=== PATIENT | female | born 1955 | race Asian ===

== ENCOUNTER 2017-06-06 16:32 | Emergency (ER) | payer BC, OTHER ==
[~2017-06-06] VITALS: Ht 157.5 cm; Wt 61.0 kg
[2017-06-06 16:35] VITALS: Ht 157.5 cm; Wt 61.0 kg
[2017-06-06] MEDS ORDERED: ONDANSETRON 4 MG INJ IV STA (17:44)
[2017-06-06] MEDS ORDERED: KETOROLAC 15 MG INJ IV STA (17:44)
[2017-06-06] MEDS ORDERED: SOD CHLORIDE 0.9% 1,000 ML IV STA (17:44)
--- NOTE | 2017-06-06 17:49 | ERD ---
ER Documentation Chief Complaint Date/Time DATE: 06/06/17 TIME: 17:45 Chief Complaint 6/10 left side pelvic pain x 4 days HPI 62-year-old female presents complaining of left lower quadrant abdominal pain/ pelvic pain for the past 4 days. Pain is 6 out of 10 nonradiating. Denies any fever. Denies any nausea or vomiting. Admits to mild diarrhea without any blood. States she denies any dysuria but has had difficulty urinating and has been urinating frequently with small amounts. Denies any hematuria. ROS All systems reviewed and are negative except as per history of present illness. Medications Home Meds Active Scripts Metronidazole* (Flagyl*) 500 Mg Tablet, 500 MG PO Q8 for 7 Days, TAB Prov:JHONY MCCALLUM PA-C 06/06/17 Ciprofloxacin Hcl* (Ciprofloxacin Hcl*) 500 Mg Tablet, 500 MG PO BID for 5 Days , TAB Prov:JHONY MCCALLUM PA-C 06/06/17 Allergies Allergies: Coded Allergies: No Known Allergy (Unverified , 06/06/17) FmHx Family History: No diabetes Physical Exam Vitals Vital Signs Date Time Temp Pulse Resp B/P Pulse Ox O2 Delivery O2 Flow Rate FiO2 06/06/17 16:35 97.3 101 16 143/65 96 Physical Exam INITIAL VITAL SIGNS: Reviewed by me GENERAL: Awake, alert and oriented x 4, well appearing, nontoxic, speaking in full sentences. No acute distress HEAD: Atraumatic NECK: Supple. No masses. Full range of motion. No meningismus. No midline tenderness. RESPIRATORY: Clear to auscultation bilaterally. Symmetric chest wall rise. No wheezing or rales. No accessory muscle use. CV: Regular rate and rhythm. No murmurs, rubs, or gallops. ABDOMEN: Soft, non-distended. Negative [place]. Negative McBurneys point tenderness. No CVA tenderness bilaterally. No guarding. No rebound. Mild left quadrant lower tenderness Result Diagram: 06/06/17 0286 Results 24 hrs Laboratory Tests Test 06/06/17 18:15 06/06/17 18:38 Urine Color YELLOW Urine Clarity SLIGHTLY CLOUDY Urine pH 5.0 Urine Specific [place] 1.026 Urine Ketones NEGATIVEmg/dL Urine Nitrite NEGATIVEmg/dL Urine Bilirubin NEGATIVEmg/dL Urine Urobilinogen NEGATIVEmg/dL Urine Leukocyte Esterase TRACELeu/ul Urine Microscopic RBC 2/HPF Urine Microscopic WBC 3/HPF Urine Squamous Epithelial Cells FEW/HPF Urine Mucus MODERATE/HPF Urine Hemoglobin NEGATIVEmg/dL Urine Glucose NEGATIVEmg/dL Urine Total Protein NEGATIVEmg/dl White Blood Count 11.410^3/ul Red Blood Count 4.4610^6/ul Hemoglobin 14.2g/dl Hematocrit 41.0% Mean Corpuscular Volume 91.9fl Mean Corpuscular Hemoglobin 31.8pg Mean Corpuscular Hemoglobin Concent 34.6g/dl Red Cell Distribution Width 11.1% Platelet Count 97667^3/UL Mean Platelet Volume 9.7fl Neutrophils % 66.4% Lymphocytes % 22.0% Monocytes % 9.2% Eosinophils % 1.8% Basophils % 0.2% Nucleated Red Blood Cells % 0.0/100WBC Neutrophils # 7.610^3/ul Lymphocytes # 2.510^3/ul Monocytes # 1.110^3/ul Eosinophils # 0.210^3/ul Basophils # 0.010^3/ul Nucleated Red Blood Cells # 0.010^3/ul Current Medications Medications (Trade) Dose Ordered Sig/George Route PRN Reason Start Time Stop Time Status Last Admin Dose Admin Sodium Chloride (NS) 1,000 ml @ 1,000 mls/hr Q1H STAT IV 06/06/17 17:44 06/06/17 18:43 DC 06/06/17 18:46 Ondansetron HCl (Zofran Inj) 4 mg ONCE STAT IV 06/06/17 17:44 06/06/17 17:47 DC Ketorolac Tromethamine (Toradol) 15 mg ONCE STAT IV 06/06/17 17:44 06/06/17 17:47 DC 06/06/17 18:45 Procedures/MDM 62-year-old female presents with left-sided abdominal/pelvic pain. Blood pressure very mildly elevated 143/65 and very mildly tachycardic at 101 otherwise vital signs are normal. The differential diagnosis includes but is not limited to appendicitis, cholelithiasis, cholecystitis, pancreatitis, hepatitis, gastritis, peptic ulcer disease, bowel obstruction, diverticulitis, renal disease including stones, torsion, AAA, pyelonephritis, and others. Patient was given IV fluids and pain medication and abdominal labs and CT scan and pelvic ultrasound ordered. Results of ct: Acute diverticulitis of the mid distal descending colon. No evidence of pneumatosis, pneumoperitoneum or organized fluid collection.Fatty infiltration liver.Fusiform fluid-filled dilatation of the appendix without associated inflammation. 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 General surgical follow-up advised.Bibasilar inflammatory bronchiolitis.Pelvic floor relaxation with cystocele and peritoneocele.results of US: The uterus and bilateral ovaries are not visualized although there is a tubular fluid - filled structure in the right adnexa which correlates with the similarly sized elongated fluid - filled structure projecting off the appendix into the right adnexa on the CT study from the same date. This is nonspecific although it may be a mucocele of the appendix. Surgical consultation is recommended. I spoke to Dr. Bauman about this who recommended i consult surgery. I spoke to Dr. Craft who explained that this patient is suitable for outpatient management but should follow up for nonemergent appendectomy. Patient's CBC shows very mildly elevated white blood count of 11. Results of CMP was still pending at the end of my shift and this was passed on the next provider who will place an addendum if there are abnormal results in CMP. Patient was discharged with Cipro and Flagyl. She was given copies of all of her labs and CT and ultrasound. Patient counseled regarding my diagnostic impression and care plan. Pt agrees with treatment plan and understands strict return precautions. Pt is instructed to follow up with primary care provider within 24-48 hours. Precautionary instructions provided including instructions to return to the ER if not improving or for any worsening or changing symptoms or concerns. Departure Diagnosis: Primary Impression: Diverticulitis Condition: Stable JHONY MCCALLUM PA-C Jun 06, 2017 17:49
--- NOTE | 2017-06-06 18:29 | RADRPT ---
PROCEDURE: CT Abdomen and Pelvis without contrast. CLINICAL INDICATION: Left lower quadrant abdominal pain. TECHNIQUE: Multiple contiguous axial CT images of the abdomen and pelvis were obtained without the administration of intravenous contrast. Coronal and sagittal reconstructions were also performed. CTDIvol (mGy): 7.28; Total Exam DLP (mGy-cm): 365.36. One or more of the following dose reduction techniques were utilized: - Automated exposure control. - Adjustment of the mA and/or kV according to patient size. - Use of iterative reconstruction technique. COMPARISON: Pelvic ultrasound 11/13/2016. FINDINGS: Limited imaging of the lower thorax demonstrate scattered inflammatory bronchiolitis throughout the lung bases, right greater than left. The liver and spleen are homogeneous in density. The liver is diffusely low in attenuation compatibl e with fatty infiltration. The gallbladder, pancreas and adrenal glands are unremarkable. The kidneys are symmetric in size. There are no nephroureteral stones. There is no hydronephrosis o r abnormal perinephric inflammation. The abdominal aorta is normal in caliber. There is no periaortic / retroperitoneal lymphadenopathy. The stomach and small intestines are unremarkable. Diverticulosis is present. Moderate submucosal and pericolonic inflammatory edema of the mid distal descending colon is present and compatible with acute diverticulitis. There is no evidence of pneumatosis or pneumoperitoneum. There is no eviden ce of organized fluid collection. There is fluid-filled fusiform dilatation of the appendix measuri ng 2.1 cm in greatest diameter. There is no periappendiceal inflammation. Imaging appearance sugge st the presence of an appendiceal mucocele. This likely corresponds to the cystic lesion seen withi n the right adnexa on prior pelvic ultrasound. The bladder is collapsed. The uterus is absent. There is no free pelvic fluid. There is no pelvic sidewall or inguinal lymphadenopathy. A cystocele and peritoneocele are present. Degenerative changes of the spine are present. Body wall soft tissues are unremarkable. IMPRESSION: Acute diverticulitis of the mid distal descending colon. No evidence of pneumatosis, pneumoperitone um or organized fluid collection. Fatty infiltration liver. Fusiform fluid-filled dilatation of the appendix without associated inflammation. Imaging appearanc e suggest the presence of an appendiceal mucocele. General surgical follow-up advised. Bibasilar inflammatory bronchiolitis. Pelvic floor relaxation with cystocele and peritoneocele. RPTAT: HLST .Jessika Ortega MD, MD Date Time Electronically viewed and signed by .Jessika Ortega MD, MD on 06/06/2017 18:29 .T/
--- NOTE | 2017-06-06 18:37 | RADRPT ---
PROCEDURE: US Pelvis CLINICAL INDICATION: Abdominal Pain, history of hysterectomy and oophorectomy TECHNIQUE: Multiple sonographic images of the pelvis were obtained utilizing a transabdominal and endovaginal technique. The images were reviewed on a PACS workstation. COMPARISON: CT abdomen/pelvis from the same date FINDINGS: The uterus is not visualized. Bilateral ovaries are not visualized. There is a tubular structure in the right adnexa measuring 8.4 x 2.9 x 3.0 cm with mildly complex in ternal fluid. No significant pelvic free fluid is identified. IMPRESSION: The uterus and bilateral ovaries are not visualized although there is a tubular fluid - filled struc ture in the right adnexa which correlates with the similarly sized elongated fluid - filled structur e projecting off the appendix into the right adnexa on the CT study from the same date. This is non specific although it may be a mucocele of the appendix. Surgical consultation is recommended. RPTAT: EE Physician Monroe Date Time Electronically viewed and signed by Physician Monroe on 06/06/2017 18:36 /
[2017-06-06 18:39] LABS: ADD UMIC YES; UR ASCORBIC ACID NEGATIVE (NEGATIVE); UR BILIRUBIN (Dip) NEGATIVE (NEGATIVE); UR BLOOD (Dip) NEGATIVE (NEGATIVE); UR CLARITY SLIGHTLY CLOUDY (CLEAR); UR COLOR YELLOW (YELLOW); UR GLUCOSE (Dip) NEGATIVE (NEGATIVE); UR KETONES (Dip) NEGATIVE (NEGATIVE); UR LEUKOCYTE ESTERASE (Dip) TRACE Leu/ul (NEGATIVE); UR MUCUS MODERATE /HPF (NONE SEEN); UR NITRITE (Dip) NEGATIVE (NEGATIVE); UR RBC 2 /HPF (0-5); UR SPECIFIC GRAVITY (Dip) 1.026 (1.003-1.030); UR SQUAMOUS EPITHELIAL CELL FEW /HPF (FEW); UR TOTAL PROTEIN (Dip) NEGATIVE (NEGATIVE); UR UROBILINOGEN (Dip) NEGATIVE (NEGATIVE)
[2017-06-06 18:52] LABS: BASOPHILS % 0.2 % (0.0-2.0); EOSINOPHILS # 0.2 10^3/ul (0.0-0.5); EOSINOPHILS % 1.8 % (0.0-7.0); HEMOGLOBIN 14.2 g/dl (12.0-16.0); LYMPHOCYTES # 2.5 10^3/ul (0.8-2.9); MEAN CORPUSCULAR HEMOGLOBIN 31.8 pg (29.0-33.0); MEAN CORPUSCULAR HGB CONC 34.6 g/dl (32.0-37.0); MEAN CORPUSCULAR VOLUME 91.9 fl (82.0-101.0); MEAN PLATELET VOLUME 9.7 fl (7.4-10.4); MONOCYTE # 1.1 10^3/ul (0.3-0.9); MONOCYTES % 9.2 % (0.0-11.0); NEUTROPHIL # 7.6 10^3/ul (1.6-7.5); NEUTROPHILS % 66.4 % (39.0-77.0); PLATELET COUNT 219 10^3/UL (140-415); RED BLOOD COUNT 4.46 10^6/ul (4.20-5.40); RED CELL DISTRIBUTION WIDTH 11.1 % (11.5-14.5); WHITE BLOOD COUNT 11.4 10^3/ul (4.8-10.8)
[2017-06-06] MEDS ORDERED: CIPR500T4 PO (19:22)
[2017-06-06] MEDS ORDERED: METR500T PO (19:22)
[2017-06-06 19:29] LABS: ALBUMIN 4.6 g/dl (3.3-4.9); ALBUMIN/GLOBULIN RATIO 1.06; BILIRUBIN,INDIRECT 0.5 mg/dl (0-1.1); BILIRUBIN,TOTAL 0.5 mg/dl (0.2-1.3); CALCIUM 9.2 mg/dl (8.4-10.2); CREATININE 0.62 mg/dl (0.44-1.00); POTASSIUM 4.1 mmol/L (3.5-5.1); TOTAL PROTEIN 8.9 g/dl (6.1-8.1)
--- NOTE | 2017-06-06 21:05 | EN ---
Date/Time of Note Date/Time of Note DATE: 06/06/17 TIME: 21:05 ER Progress Note CMP was unremarkable patient is stable to be discharged home per Joe Guardado is discharge instructions JEFF LAMBERT PA-C Jun 06, 2017 21:05
[2017-06-06 21:16] VITALS: BP 128/70; PULSE 85; RESP 20; TEMP 99
== END 2017-06-06 21:17 | disposition home or self-care (01) ==
LOC: FTE 16:32
DX: K57.32 Diverticulitis of large intestine without perforation or abscess without bleeding (principal)
CPT/HCPCS: 36415; 74176; 76856; 80053; 81001; 83690; 85025; 96374; J1885; J7030; Z7502; J2405

== ENCOUNTER 2017-07-11 12:27 | Emergency (ER) | payer BC ==
[~2017-07-11] VITALS: Ht 162.6 cm; Wt 59.5 kg
[~2017-07-11 12:27] MED LIST: CIPR500T4 PO; METR500T PO
[2017-07-11 12:30] VITALS: Ht 162.6 cm; Wt 59.5 kg
[2017-07-11] MEDS ORDERED: TETRACAINE 0.5% 4 ML OPH RIGHT EYE ONE (14:00)
--- NOTE | 2017-07-11 16:25 | RADRPT ---
PROCEDURE: Orbital ultrasound CLINICAL INDICATION: Blurry vision. Previous left retinal attachment surgery. TECHNIQUE: Sonographic evaluation of the orbits was performed bilaterally. COMPARISON: None available FINDINGS: The optic nerves are visualized bilaterally and are unremarkable. Subtle echogenic foci are seen wit hin the vitreous humor, nonspecific. However, no detachment is seen. Minimal debris is seen along th e posterior margin of the left optic globe. Further evaluation is warranted. No hematoma or mass les ion is identified. Abnormal appearance of the left optic lens is perceived. Query prior surgery. IMPRESSION: 1. Subtle echogenic foci within the optic globes with irregularity along the posterior margin of th e left optic globe. Vitreous hemorrhage is not excluded. Close observation and follow-up is advised. 2. No definite but no detachment is identified at this time. The changes involving the posterior le ft optic globe may be related to prior left retinal detachment surgery. 3. Irregularity with increased echogenicity and posterior through transmission involving the left o ptic alma. Query prior surgery. RPTAT: HMJB .Cristino Paiz MD, Date Time Electronically viewed and signed by .Cristino Paiz MD, on 07/11/2017 16:24 .B/
--- NOTE | 2017-07-11 16:51 | ERD ---
ER Documentation Chief Complaint Date/Time DATE: 07/11/17 TIME: 16:47 Chief Complaint RIGHT EYE PAIN,BLURRY VISION X 2 WEEKS (BOSTON MARTIN PA-C) HPI Patient is a 62-year-old female with a past medical history of hypertension, left eye vitreous hemorrhage, left eye retinal detachment who presents emergency department for concerns of right eye pain and blurry vision. Patient states that she has had right eye pain x 2 weeks now. Patient states 1 week ago she had blurry vision. Patient states her blurry vision resolved intermittently , however it reoccurred today. Patient reports mild pain with eye movement. Patient states that the pain is behind her right eye and radiates to her ear and down right neck. Patient states she started having blurry vision 1 week ago. Patient also reports increased tearing. Patient denies any falls or trauma. Patient does wear reading glasses. Patient denies any fevers, chills, nausea, vomiting, headache, shortness of breath, chest pain or LOC. (BOSTON MARTIN PA-C) ROS All systems reviewed and are negative except as per history of present illness. (BOSTON MARTIN PA-C) Medications Home Meds Active Scripts Metronidazole* (Flagyl*) 500 Mg Tablet, 500 MG PO Q8 for 7 Days, TAB Prov:JHONY MCCALLUM PA-C 06/06/17 Ciprofloxacin Hcl* (Ciprofloxacin Hcl*) 500 Mg Tablet, 500 MG PO BID for 5 Days , TAB Prov:JHONY MCCALLUM PA-C 06/06/17 Allergies Allergies: Coded Allergies: No Known Allergy (Unverified , 06/06/17) PMhx/Soc History of Surgery: Yes (hysterectomy/left eye retanal detachment/hemorrhage) Anesthesia Reaction: No Hx Neurological Disorder: No Hx Respiratory Disorders: No Hx Cardiac Disorders: No Hx Psychiatric Problems: No Hx Miscellaneous Medical Probl: No Hx Alcohol Use: Yes (OCCAS WINE) Hx Substance Use: No Hx Tobacco Use: No Smoking Status: Never smoker (BOSTON MARTIN PA-C) Physical Exam Vitals Vital Signs Date Time Temp Pulse Resp B/P Pulse Ox O2 Delivery O2 Flow Rate FiO2 07/11/17 12:30 98.9 98 18 170/74 98 (ERICA BERMAN DO) Physical Exam GENERAL: Well-developed, well-nourished female. Appears in no acute distress. HEAD: Normocephalic, atraumatic. EYE: Visual acuity w/ Snellen eye chart: OD: 20/30, OS: 0, OU: 20/25 Normal eye alignment. No orbital swelling or erythema. No proptosis. Pupils equal, round, and reactive to light. EOMs intact. Minimal conjunctival erythema of R eye. chamber clear. No hyphema or hypopion. Fundoscopic exam: Red light reflex present, no fundal hemorrhages IOP of R eye: 54, 56, 59, 58 IOP of L eye: 24, 20, 25, 16 ENT: Moist mucous membranes. No uvula deviation. No kissing tonsils. NECK: Supple. No meningismus. Normal range of motion of the neck. LUNG: Clear to auscultation bilaterally. No rhonchi, wheezing, rales or coarse breath sounds. HEART: Regular rate and rhythm. No murmurs, rubs or gallops. BACK: No midline tenderness. EXTREMITIES: Equal pulses bilaterally. No peripheral clubbing, cyanosis or edema. No unilateral leg swelling. NEUROLOGIC: Alert and oriented. Moving all four extremities without any difficulty. Normal speech. Steady gait. SKIN: Normal color. Warm and dry. No rashes or lesions. (BOSTON MARTIN PA-C) Results 24 hrs Current Medications Medications (Trade) Dose Ordered Sig/George Route PRN Reason Start Time Stop Time Status Last Admin Dose Admin Tetracaine HCl (Tetracaine 0.5% Steri-Unit Lindy) 1 drop ONCE ONCE RIGHT EYE 07/11/17 14:00 07/11/17 14:03 DC 07/11/17 14:05 Timolol Maleate (Timoptic 0.5%) 1 drop ONCE ONCE RIGHT EYE 07/11/17 17:30 07/11/17 17:31 DC 07/11/17 17:37 Brimonidine Tartrate (Alphagan 0.2%) 1 drop ONCE ONCE RIGHT EYE 07/11/17 17:30 07/11/17 17:31 DC Acetazolamide (Diamox) 500 mg ONCE ONCE PO 07/11/17 18:00 07/11/17 18:01 (ERICA BERMAN DO) Procedures/MDM ED COURSE: The patient was stable throughout ED course. I kept the patient and/or family informed of laboratory and diagnostic imaging results throughout the ED course. DIAGNOSTIC IMAGING: Read by radiologist. Patient: LORENA VELASCO : 1955 Age: 62 Sex: F MR #: [id number] DOS: 07/11/17 1400 Ordering MD: BOSTON MARTIN PA-C Location: [facility] Room/Bed: PROCEDURE: Orbital ultrasound CLINICAL INDICATION: Blurry vision. Previous left retinal attachment surgery. TECHNIQUE: Sonographic evaluation of the orbits was performed bilaterally. COMPARISON: None available FINDINGS: The optic nerves are visualized bilaterally and are unremarkable. Subtle echogenic foci are seen within the vitreous humor, nonspecific. However, no detachment is seen. Minimal debris is seen along the posterior margin of the left optic globe. Further evaluation is warranted. No hematoma or mass lesion is identified. Abnormal appearance of the left optic lens is perceived. Query prior surgery. IMPRESSION: 1. Subtle echogenic foci within the optic globes with irregularity along the posterior margin of the left optic globe. Vitreous hemorrhage is not excluded. Close observation and follow-up is advised. 2. No definite but no detachment is identified at this time. The changes involving the posterior left optic globe may be related to prior left retinal detachment surgery. 3. Irregularity with increased echogenicity and posterior through transmission involving the left optic alma. Query prior surgery. RPTAT: HMJB .Cristino Paiz MD, MD Date Time Electronically viewed and signed by .Cristino Paiz MD, on 07/11/2017 16:24 .B/ CC: BOSTON MARTIN PA-C MEDICATIONS GIVEN: Alphagan, Timolol MEDICAL DECISION MAKING: This is a 62-year-old female with history of hypertension, left eye retinal detachment, left a vitreous hemorrhage who presents emergency department for concerns of right eye pain and blurry vision. Patient reports pain in her right eye 2 weeks. Patient states she had an episode of blurry vision approximately 1 week ago. Symptoms intermittently resolved however she also had blurry vision today. Vital signs were reviewed. Patient was afebrile. Visual acuity was noted to be OD: 20/30, OS: 0, OU: 20/25. US of the bilateral orbits showed 1. Subtle echogenic foci within the optic globes with irregularity along the posterior margin of the left optic globe. Vitreous hemorrhage is not excluded. Close observation and follow-up is advised. 2. No definite but no detachment is identified at this time. The changes involving the posterior left optic globe may be related to prior left retinal detachment surgery. 3. Irregularity with increased echogenicity and posterior through transmission involving the left optic alma. Query prior surgery. Patient intraocular pressures were checked numerous times. Pressures in the right eye were noted to be 54, 56. 59, 58. Pressures in the left eye were noted to be 24, 20, 25 and 16. I discussed the findings with my supervising physician Dr. Berman, agreed that the patient's intraocular pressures were concerning for acute glaucoma. Patient was Timolol and Alphagan drops. Patient's barrel lathe operator, Dr. Ramirez, was contacted. Patient will be signed out to Marielena Fay pending dispo. (BOSTON MARTIN PA-C) BOSTON MARTIN PA-C Jul 11, 2017 16:51 ERICA BERMAN DO Jul 11, 2017 17:44
[2017-07-11] MEDS ORDERED: BRIMONIDINE 0.2% 5 ML BTL RIGHT EYE ONE (17:30)
[2017-07-11] MEDS ORDERED: TIMOLOL 0.5% 5 ML OPH RIGHT EYE ONE (17:30)
--- NOTE | 2017-07-11 17:48 | ERD ---
ER Documentation Chief Complaint Date/Time DATE: 07/11/17 TIME: 17:45 Chief Complaint RIGHT EYE PAIN,BLURRY VISION X 2 WEEKS HPI Patient is a 62-year-old female with a past medical history of hypertension, left eye vitreous hemorrhage, left eye retinal detachment who presents emergency department for concerns of right eye pain and blurry vision. Patient states that she has had right eye pain x 2 weeks now. Patient states 1 week ago she had blurry vision. Patient states her blurry vision resolved intermittently , however it reoccurred today. She denies any trauma to the eye and came to the ER for evaluation ROS All systems reviewed and are negative except as per history of present illness. Medications Home Meds Active Scripts Metronidazole* (Flagyl*) 500 Mg Tablet, 500 MG PO Q8 for 7 Days, TAB Prov:JHONY MCCALLUM PA-C 06/06/17 Ciprofloxacin Hcl* (Ciprofloxacin Hcl*) 500 Mg Tablet, 500 MG PO BID for 5 Days , TAB Prov:JHONY MCCALLUM PA-C 06/06/17 Allergies Allergies: Coded Allergies: No Known Allergy (Unverified , 06/06/17) PMhx/Soc History of Surgery: Yes (hysterectomy/left eye retanal detachment/hemorrhage) Anesthesia Reaction: No Hx Neurological Disorder: No Hx Respiratory Disorders: No Hx Cardiac Disorders: No Hx Psychiatric Problems: No Hx Miscellaneous Medical Probl: No Hx Alcohol Use: Yes (OCCAS WINE) Hx Substance Use: No Hx Tobacco Use: No Smoking Status: Never smoker Physical Exam Vitals Vital Signs Date Time Temp Pulse Resp B/P Pulse Ox O2 Delivery O2 Flow Rate FiO2 07/11/17 12:30 98.9 98 18 170/74 98 Physical Exam Const: NAD Head: Atraumatic Eyes: Normal Conjunctiva ENT: Normal External Ears, Nose and Mouth. Neck: Full range of motion..~ No meningismus. Resp: Clear to auscultation bilaterally Cardio: Regular rate and rhythm, no murmurs Abd: Soft, non tender, non distended. Normal bowel sounds Skin: No petechiae or rashes Back: No midline or flank tenderness Ext: No cyanosis, or edema Neur: Awake and alert Psych: Normal Mood and Affect Results 24 hrs Current Medications Medications (Trade) Dose Ordered Sig/George Route PRN Reason Start Time Stop Time Status Last Admin Dose Admin Tetracaine HCl (Tetracaine 0.5% Steri-Unit Lindy) 1 drop ONCE ONCE RIGHT EYE 07/11/17 14:00 07/11/17 14:03 DC 07/11/17 14:05 Timolol Maleate (Timoptic 0.5%) 1 drop ONCE ONCE RIGHT EYE 07/11/17 17:30 07/11/17 17:31 DC 07/11/17 17:37 Brimonidine Tartrate (Alphagan 0.2%) 1 drop ONCE ONCE RIGHT EYE 07/11/17 17:30 07/11/17 17:31 DC Acetazolamide (Diamox) 500 mg ONCE ONCE PO 07/11/17 18:00 07/11/17 18:01 Procedures/MDM US eye: 1. Subtle echogenic foci within the optic globes with irregularity along the posterior margin of the left optic globe. Vitreous hemorrhage is not excluded. Close observation and follow-up is advised. 2. No definite but no detachment is identified at this time. The changes involving the posterior left optic globe may be related to prior left retinal detachment surgery. 3. Irregularity with increased echogenicity and posterior through transmission involving the left optic alma. Query prior surgery. This 62-year-old female presents to the emergency room for evaluation of eye pain. This patient does have a previous history of left-sided vitreous hemorrhage. The patient was complaining of right-sided blurred vision. The patient has no visual acuity deficits. Please see visual acuity nursing notes. The patient did have elevation in her intraocular pressure with elevations greater than 45 taken in the right eye. The patient does see an zmt operator, Dr. Ramirez and has an appointment on July 15. The patient was given atenolol, Alphagan, and Diamox in the emergency room for her elevation in intraocular pressure. I have contacted her zmt operator who agrees to see her tomorrow July 12 in the office at 12 PM. I have relayed this information to the patient and the patient's daughter who were agreeable. They will be discharged home with a prescription for timolol, Alphagan, Diamox, and Travatan Critical Care: Excluding all billable procedures Time: 35 minutes Treatments/Evaluations: Close monitoring and treatment of unstable vital signs, cardiorespiratory, and neurologic status, while maintaining tight balance of fluid, respiratory, and cardiac interventions. Departure Diagnosis: Primary Impression: Glaucoma, right eye Condition: ERICA See DO Jul 11, 2017 17:48
[2017-07-11] MEDS ORDERED: ALP2OP10 RIGHT EYE (17:51)
[2017-07-11] MEDS ORDERED: TIMO15DR15 RIGHT EYE (17:51)
[2017-07-11] MEDS ORDERED: ACET250T22 PO (17:51)
[2017-07-11] MEDS ORDERED: TRAV2.5D RIGHT EYE (17:51)
[2017-07-11] MEDS ORDERED: ACETAZOLAMIDE 250 MG TAB PO ONE (18:00)
== END 2017-07-11 18:11 | disposition home or self-care (01) ==
LOC: FTE 12:27
DX: H40.9 Unspecified glaucoma (principal); I10 Essential (primary) hypertension
CPT/HCPCS: 76536; Z7502; Z7610

== ENCOUNTER 2018-08-16 18:14 | Inpatient (IN) | END 2018-08-20 16:45 | disposition home or self-care (01) | DRG 871 ==

== ENCOUNTER 2018-10-22 13:28 | Inpatient (IN) | END 2018-10-26 16:23 | disposition home or self-care (01) | DRG 871 ==

== ENCOUNTER 2018-11-16 23:16 | Emergency (ER) | payer MEDICARE, BC ==
[~2018-11-16] VITALS: Ht 157.5 cm; Wt 63.0 kg
[~2018-11-16 23:16] MED LIST changes: +BRIM15DR7 RIGHT EYE; -CIPR500T4 PO; +DORZ10DR5 RIGHT EYE; +FLUC100T39 PO; +FLUT1AER INHALATION; +IPRA3AMP29 HHN; +METF500T24 PO; -METR500T PO; +NITR0.4T32 SL; +TIMO5DRO30 RIGHT EYE
[2018-11-16 23:27] VITALS: Ht 157.5 cm; Wt 63.0 kg
[2018-11-17] MEDS ORDERED: ALBUTEROL 0.083% (NEB) 2.5 MG/3 ML AMP NEB STA (01:07)
[2018-11-17] MEDS ORDERED: IPRATROPIUM (NEB) 0.5 MG/2.5 ML AMP NEB STA (01:08)
[2018-11-17 03:00] VITALS: BP 125/81; PULSE 73; RESP 18
[2018-11-17] MEDS ORDERED: ALBU18HF INHALATION (03:11)
[2018-11-17] MEDS ORDERED: PROM5SYR2 PO (03:11)
--- NOTE | 2018-11-27 00:14 | ERD ---
ER Documentation Chief Complaint Chief Complaint coughing up blood x 1 day HPI This is a very pleasant 63-year female has been having blood-streaked coughing for the past day. She is a history of bronchiectasis in the past. No nausea no vomiting. No chills. Cough is mildly productive otherwise. No sick contacts. No other current issues. ROS All systems reviewed and are negative except as per history of present illness. Medications Home Meds Active Scripts Promethazine HCl/Codeine (Prometh-Codein 6.25-10 mg/5 ml) 5 Ml Syrup, 5 ML PO Q6, #1 Prov:LOGAN HANSON 11/17/18 Albuterol Sulfate* (Ventolin HFA*) 18 Gm Hfa.aer.ad, 2 PUFF INHALATION Q4H, #1 INHALER Prov:LOGAN HANSON 11/17/18 Fluconazole* (Fluconazole*) 100 Mg Tablet, 100 MG PO DAILY for 7 Days, TAB Prov:SYED RICARDO 10/26/18 Nitroglycerin* (Nitroglycerin* SL) 0.4 Mg Tab.subl, 1 TAB SL Q5M PRN for ANGINA for 30 Days Prov:SYED RICARDO 10/26/18 Fluticasone-Vilanterol (Breo Ellipta Inhaler) 100-25 Mcg/Actuation Aer.pow.ba, 1 PUFF INHALATION DAILY, #1 INHALER Prov:SMITA XIE MD 08/20/18 Ipratropium-Albuterol (Ipratropium-Albuterol) 0.5-3 Mg/3 Ml Ampul.neb, 3 ML HHN Q4H RESP THERAPY for 10 Days Prov:SMITA XIE MD 08/20/18 Reported Medications Dorzolamide Hcl* (Dorzolamide Hcl*) 10 Ml Drops, 1 DROP RIGHT EYE TID, #1 EA 08/16/18 Timolol Maleate* (Timoptic*) 0.5%-5ml Opht, 1 DROP RIGHT EYE BID, #1 EA 08/16/18 Brimonidine Tartrate* (Brimonidine Tartrate*) 0.2%-15ML Drop Opht, 1 DROP RIGHT EYE Q8, #1 EA 08/16/18 Metformin Hcl* (Metformin Hcl*) 500 Mg Tablet, 500 MG PO WITH BREAKFAST, #30 TAB 08/16/18 Allergies Allergies: Coded Allergies: No Known Allergy (Unverified , 10/22/18) PMhx/Soc History of Surgery: Yes (HYSTERECTOMY, LEFY EYE SX FOR DETACHED RETINA) Anesthesia Reaction: No Hx Neurological Disorder: No Hx Respiratory Disorders: Yes (BRONCHIECTASIS) Hx Cardiac Disorders: Yes (HTN) Hx Psychiatric Problems: No Hx Miscellaneous Medical Probl: Yes (bronchiectasis, detached retina, questionable diabetes ) Hx Alcohol Use: No Hx Substance Use: No Hx Tobacco Use: No Smoking Status: Never smoker Physical Exam Physical Exam Const: No acute distress Head: Atraumatic Eyes: Normal Conjunctiva ENT: Normal External Ears, Nose and Mouth. Neck: Full range of motion. No meningismus. Resp: Clear to auscultation bilaterally Cardio: Regular rate and rhythm, no murmurs Abd: Soft, non tender, non distended. Normal bowel sounds Skin: No petechiae or rashes Back: No midline or flank tenderness Ext: No cyanosis, or edema Neur: Awake and alert Psych: Normal Mood and Affect Results 24 hrs Current Medications Medications Dose Sig/George Start Time Status Last (Trade) Ordered Route PRN Stop Time Admin Dose Reason Admin Albuterol 5 mg ONCE RESP 11/17/18 DC 11/17/18 (Proventil THERAPY 01:07 01:27 0.083% (Neb)) STAT NEB 11/17/18 01:08 Ipratropium 0.5 mg ONCE RESP 11/17/18 DC 11/17/18 [place] THERAPY 01:08 01:27 (Atrovent STAT NEB 11/17/18 01:09 0.02% (Neb)) Procedures/MDM Chest X-ray 1V Interpreted by me: Soft Tissue: No acute abnormalities Bones: No acute abnormalities Mediastinum/Cardiac Silhouette/Lungs: [No acute abnormalities] Please see radiologist for reading for full report Medical decision m[age]-year female likely reactivation bronchitis. At this point clinically stable for outpatient management. Patient will be discharged home. Departure Diagnosis: Primary Impression: Hemoptysis Condition: Stable Patient Instructions: Bronchiectasis LOGAN HANSON Nov 27, 2018 00:14
== END 2018-11-17 03:35 | disposition home or self-care (01) ==
LOC: E/R 23:16
DX: R04.2 Hemoptysis (principal); I10 Essential (primary) hypertension; Z79.84 Long term (current) use of oral hypoglycemic drugs
CPT/HCPCS: 71045; 94664